=== PATIENT | male | born 1965 | race Caucasian/White ===

== ENCOUNTER 2023-10-21 11:43 | Emergency (ER) | payer BC ==
[~2023-10-21] VITALS: Ht 180.3 cm; Wt 88.5 kg
[2023-10-21 13:22] LABS: HEMATOCRIT 47 % (39-51); MEAN CORPUSCULAR VOLUME 89 fL (80-96); RED BLOOD CELL COUNT(AUTO) 5.33 MIL/uL (4.5-6.0); RED CELL DISTRIBUTION WIDTH 13.2 % (11.5-15.0); WHITE BLOOD COUNT (AUTO) 7.7 K/uL (4.3-11.0)
[2023-10-21 13:27] LABS: BASOPHILS % (AUTO) 0.6 % (0.0-2.0); EOSINOPHILS % (AUTO) 0.5 % (0.0-6.0); LYMPHOCYTES # (AUTO) 0.7 K/uL (0.8-4.8); LYMPHOCYTES % (AUTO) 8.9 % (20.0-44.0); MEAN CORPUSCULAR HEMOGLOBIN 30 PG (26.0-33.0); MEAN CORPUSCULAR HGB CONC 34 g/dl (31.0-36.0); MONOCYTES # (AUTO) 0.7 K/uL (0.1-1.30); MONOCYTES % (AUTO) 9.5 % (2.0-12.0); NEUTROPHILS # (AUTO) 6.2 K/uL (1.8-8.9); NEUTROPHILS % (AUTO) 80.5 % (43.0-81.0); PLATELET COUNT (AUTO) 165 K/uL (150-450)
[2023-10-21 13:34] LABS: CALCIUM, SERUM 8.6 mg/dL (8.5-10.1); POTASSIUM 4.5 mmol/L (3.5-5.1)
[2023-10-21 13:40] LABS: ALBUMIN 4.2 g/dL (3.4-5.0); BILIRUBIN,DIRECT 0.1 mg/dL (0.0-0.2); BILIRUBIN,TOTAL 0.5 mg/dL (0.2-1.0); TOTAL PROTEIN, SERUM 7.7 g/dL (6.4-8.2)
[2023-10-21] MEDS ORDERED: ONDA4TAB11 PO (14:50)
[2023-10-21] MEDS ORDERED: TAMS-12 PO (14:50)
[2023-10-21] MEDS ORDERED: KETO10TA2 PO (14:50)
[2023-10-21] MEDS ORDERED: TAMSULOSIN 0.4 MG CAP.SR.24H ONE (15:09)
[2023-10-21] MEDS: TAMSULOSIN 0.4 MG CAP.SR.24H PO ONE (15:09)
[2023-10-21 15:10] VITALS: BP 134/78; TEMP 98; O2SAT 98
[2023-10-21 15:24] LABS: APPEARANCE,URINE Clear (CLEAR); BILIRUBIN,URINE Negative (NEGATIVE); BLOOD, URINE Moderate Ery/uL (NEGATIVE); COLOR,URINE YELLOW (YELLOW); KETONES,URINE Negative (NEGATIVE); LEUKOCYTE ESTERASE ,URINE Negative (NEGATIVE); NITRITE, URINE Negative (NEGATIVE); PH,URINE 5.5 (5.0-8.0); PROTEIN,URINE Negative (NEGATIVE); UGLUCOSE Negative (NEGATIVE); UROBILINOGEN,URINE 0.2 EU/dL (0.2)
== END 2023-10-21 15:11 | disposition home or self-care (01) ==
LOC: ER 11:43
DX: N20.1 Calculus of ureter (principal)
CPT/HCPCS: 36415; 80048-TC; 80076-TC; 83690-TC; 85025-TC; 87086-TC

== ENCOUNTER 2024-12-19 07:31 | Emergency (ER) | payer BC ==
[~2024-12-19] VITALS: Ht 180.3 cm; Wt 88.0 kg
[~2024-12-19 07:31] MED LIST: KETO10TA2 PO; ONDA4TAB11 PO; TAMS-12 PO
[2024-12-19] MEDS ORDERED: KETOROLAC TROMETHAMINE 15 MG/ML VIAL ONE (07:48)
[2024-12-19] MEDS ORDERED: MORPHINE SULFATE INJ 4 MG/ML DISP.SYRIN ONE (07:49)
[2024-12-19] MEDS ORDERED: ONDANSETRON HCL/PF 4 MG/2 ML VIAL ONE (07:49)
[2024-12-19] MEDS: IV NS 0.9% 1,000 ML BAG IV ONE (08:00)
[2024-12-19 08:01] LABS: PLATELET COUNT (AUTO) 187 K/uL (150-450); RED BLOOD CELL COUNT(AUTO) 5.37 MIL/uL (4.5-6.0); RED CELL DISTRIBUTION WIDTH 13.2 % (11.5-15.0); WHITE BLOOD COUNT (AUTO) 12.0 K/uL (4.3-11.0)
[2024-12-19] MEDS: MORPHINE SULFATE INJ 2 MG/ML DISP.SYRIN IV ONE (08:02)
[2024-12-19] MEDS: ONDANSETRON HCL/PF 4 MG/2 ML VIAL IV ONE (08:03)
[2024-12-19] MEDS: KETOROLAC TROMETHAMINE 15 MG/ML VIAL IV ONE (08:03)
[2024-12-19 08:10] LABS: CALCIUM, SERUM 9.3 mg/dL (8.5-10.1); CREATININE 1.3 mg/dL (0.6-1.3); SODIUM SERUM 143.0 mmol/L (136-145); UREA NITROGEN, BLOOD 21.0 mg/dL (7-18)
[2024-12-19 08:20] LABS: ASPARTATE AMINOTRANSFERASE 20.0 U/L (15-37); TOTAL PROTEIN, SERUM 7.6 g/dL (6.4-8.2)
[2024-12-19 09:41] LABS: APPEARANCE,URINE CLEAR (CLEAR); BLOOD, URINE 3+ Ery/uL (NEGATIVE); LEUKOCYTE ESTERASE ,URINE NEGATIVE (NEGATIVE); NITRITE, URINE NEGATIVE (NEGATIVE); UGLUCOSE NEGATIVE (NEGATIVE)
[2024-12-19 10:03] LABS: ADD URINE CULTURE NO; SQUAMOUS EPITHELIAL CELL,UR 0-2 /HPF (None Seen)
[2024-12-19] MEDS ORDERED: ONDA4TAB5 PO (10:52)
[2024-12-19] MEDS ORDERED: IBUP-1490 PO (10:52)
[2024-12-19] MEDS ORDERED: OXYC-128 PO (10:52)
[2024-12-19] MEDS ORDERED: TAMS-12 PO (10:52)
[2024-12-19 11:03] VITALS: BP 131/82; TEMP 98; O2SAT 100
== END 2024-12-19 11:03 | disposition home or self-care (01) ==
LOC: ER 07:31
DX: N13.2 Hydronephrosis with renal and ureteral calculous obstruction (principal); R11.2 Nausea with vomiting, unspecified; Z79.899 Other long term (current) drug therapy
CPT/HCPCS: 99285; 74176; 96374; 96375; 96361; 85025; 80048; 87086; 83690; 80076; 81001; 36415; J1885; J2270; J2405; J7030